=== PATIENT | male | born 1950 | race Caucasian/White ===

== ENCOUNTER 2017-08-24 01:56 | Emergency (ER) | payer OTHER ==
[~2017-08-24] VITALS: Ht 172.7 cm; Wt 60.2 kg
[~2017-08-24 01:56] MED LIST: ADVAIR 250/501 DISK IH; ALEVE220 MG PO; ALPRAZOLAM0.5 MG PO; ASPIRIN325 MG PO; AUGMENTIN875 MG PO; CEFTIN500 MG PO; CYCLOBENZAPRINE10 MG PO; LEXAPRO10 MG PO; LITE COAT ASPI325 M1 PO; MEDROL DOSEPAK4 MG PO; MULTIPLE VITAM1 EACH PO; NICOTINE PATCH1 EAC2 TD; OXYCODONE-APAP1 EACH PO; PRAVASTATIN SOD40 MG PO; PREDNISONE10 MG PO; PROAIR HFA8.5 GM IH; RANITIDINE HCL300 M1 PO; RANITIDINE HCL300 MG PO; ROBITUSSIN DM118 ML PO; TRAMADOL HCL50 MG PO; TYLENOL ARTHRI650 M2 PO; XANAX0.5 MG PO; ZITHROMAX TRI-500 MG PO
[2017-08-24] MEDS ORDERED: ZITHROMAX Z-PA250 MG PO (03:03)
[2017-08-24] MEDS ORDERED: PREDNISONE50 MG PO (03:03)
[2017-08-24 03:17] VITALS: BP 146/80
== END 2017-08-24 03:18 | disposition home or self-care (01) ==
LOC: EME → EDBD 01:56 → EME 03:18
DX: J44.1 Chronic obstructive pulmonary disease with (acute) exacerbation (principal); J20.9 Acute bronchitis, unspecified; J44.0 Chronic obstructive pulmonary disease with (acute) lower respiratory infection; K21.9 Gastro-esophageal reflux disease without esophagitis; E78.5 Hyperlipidemia, unspecified; F17.200 Nicotine dependence, unspecified, uncomplicated; Z87.01 Personal history of pneumonia (recurrent)
CPT/HCPCS: 71046; 93005; 94640; 99281; 99284; J7512

== ENCOUNTER 2017-09-18 16:24 | Emergency (ER) | payer OTHER ==
[~2017-09-18] VITALS: Ht 172.7 cm; Wt 59.8 kg
[~2017-09-18 16:24] MED LIST changes: +PREDNISONE50 MG PO; +ZITHROMAX Z-PA250 MG PO
[2017-09-18 16:55] LABS: HEMATOCRIT 39.2 % (38.0-50.0); HEMOGLOBIN 13.7 G/DL (12.5-16.6); MCH 33.7 PG (29.0-34.0); MCHC 34.9 G/DL (30.0-36.0); MCV 96.3 FL (86-99); PLATELET COUNT 206 K/uL (156-360); RBC DIS.WIDTH-CV 13.2 % (11.8-14.6); RBC DIS.WIDTH-SD 47.4 % (39-53); RED BLOOD COUNT 4.07 M/uL (4.00-5.50); WHITE BLOOD COUNT 7.6 K/uL (4.1-10.2)
[2017-09-18 17:03] LABS: CHLORIDE 109 mEq/L (99-109); POTASSIUM 3.8 mEq/L (3.7-5.4); SODIUM 139 mEq/L (136-147)
[2017-09-18 17:05] LABS: GLUCOSE 119 mg/dL (70-99)
[2017-09-18 17:09] LABS: CREATININE 0.7 mg/dL (0.6-1.3); GFR ESTIMATE (CALCULATED) > 59 mL/min/ (58.99-99999)
[2017-09-18 17:10] LABS: UREA NITROGEN (BUN) 10 mg/dL (9-23)
[2017-09-18] MEDS ORDERED: PREDNISONE50 MG PO (18:41)
[2017-09-18 19:20] VITALS: BP 136/80
== END 2017-09-18 19:22 | disposition home or self-care (01) ==
LOC: EME 16:24
PROVIDERS: Emergency Medicine
DX: R07.89 Other chest pain (principal); J44.1 Chronic obstructive pulmonary disease with (acute) exacerbation; K21.9 Gastro-esophageal reflux disease without esophagitis; E78.5 Hyperlipidemia, unspecified; F17.210 Nicotine dependence, cigarettes, uncomplicated
CPT/HCPCS: 71045; 80048; 83605; 85027; 93005; 94640; 99281; 99284